=== PATIENT | female | born 1985 | race Caucasian/White ===

== ENCOUNTER 2019-09-23 20:22 | Emergency (ER) | payer MEDICAID ==
[~2019-09-23] VITALS: Ht 154.9 cm; Wt 95.7 kg
[2019-09-23 20:27] VITALS: BP 122/75
--- NOTE | 2019-09-23 20:34 | NUR ---
PT AMBULATED TO LOBBY
--- NOTE | 2019-09-23 21:41 | NUR ---
PT AMBULATED TO CHD
--- NOTE | 2019-09-23 21:45 | NUR ---
34/F PRESENTS TO ED, C/O POSSIBLE BUG BITES ON BLE, X1 MONTH. REPORTS ITCHING, DENIES PAIN. PT AWAKE AND ALERT, SKIN NORMAL COLOR WARM AND DRY, RR EVEN AND UNLABORED.
[2019-09-23 22:37] VITALS: BP 122/75
--- NOTE | 2019-09-23 22:37 | NUR ---
Patient discharged by Dr Leyva with last VS stable per Dr Leyva. Written and verbal after care instructions given and explained. Patient verbalized understanding. Ambulatory with steady gait. All questions addressed prior to discharge by Dr Leyva. Advised to follow up with PMD by Dr Leyva.
== END 2019-09-23 22:37 | disposition home or self-care (01) ==
LOC: MED 20:22
DX: L85.3 Xerosis cutis (principal)
CPT/HCPCS: 99281